=== PATIENT | female | born 1945 | race Caucasian/White ===

== ENCOUNTER → 2017-04-22 | Outpatient (CLI) | payer MEDICARE ==
[~2017-04-22] MED LIST: REGADENOSON 0.4 MG/5 ML DISP.SYRIN. IV ONE
--- NOTE | 2017-04-22 13:09 | CARD ---
APPROVED REPORT EXAM: Two-dimensional and M-mode echocardiogram with Doppler and color Doppler. Other Information Quality : Good INDICATION Hypertension/HCVD 2D DIMENSIONS Left Atrium(2D)2.9 (1.6-4.0cm)IVSd1.2 (0.7-1.1cm) Aortic Root(2D)2.6 (2.0-3.7cm)LVDd3.7 (3.9-5.9cm) LVOT Diameter1.9 (1.8-2.4cm)PWd1.2 (0.7-1.1cm) LVDs2.4 (2.5-4.0cm)FS (%) 34.7 % SV36.8 mlLVEF(%)64.7 (>50%) Aortic Valve AoV Peak Alphonso.146.7cm/sAoV VTI29.8cm AO Peak GR.8.6mmHgLVOT Peak Alphonso.129.9cm/s AO Mean GR.4mmHgAVA (VMAX)2.47cm2 LUTHER (VTI)2.50cm2 Mitral Valve MV E Roquqezz79.8cm/sMV DECEL HQHH129jx MV A Eucpxpzq912.2cm/sE/A Ratio0.9 Tricuspid Valve TR P. Zyysdslt916ad/sRAP GVUSIFUL1feDl TR Peak Gr.64brBzMXWE40ygRt LEFT VENTRICLE The left ventricle is normal size. There is mild concentric left ventricular hypertrophy. Left ventri tamela systolic function is normal. The Ejection Fraction is 55-60%. There is normal LV segmental wall m otion. RIGHT VENTRICLE The right ventricle is normal size. The right ventricular systolic function is normal. ATRIA The left atrium size is normal. The right atrium size is normal. The interatrial septum is intact wit h no evidence for an atrial septal defect or patent foramen ovale as noted on 2-D or Doppler imaging. AORTIC VALVE The aortic valve is mildly thickened but opens well. Doppler and Color Flow revealed no significant a ortic regurgitation. There is no significant aortic valvular stenosis. MITRAL VALVE The mitral valve is mildly calcified but opens well. Possible bending of anterior mitral valve leafle t. There is no mitral valve stenosis. Doppler and Color-flow revealed trace to mild mitral regurgitat ion. TRICUSPID VALVE The tricuspid valve is normal in structure and function. Doppler and Color Flow revealed trace tricus pid valve regurgitation. There is no pulmonary hypertension. The PA pressure was estimated at 29 mmHg . There is no tricuspid valve prolapse or vegetation. There is no tricuspid valve stenosis. PULMONIC VALVE The pulmonary valve is normal in structure and function. Doppler and Color Flow revealed no pulmonic valvular regurgitation. There is no pulmonic valvular stenosis. GREAT VESSELS The aortic root is normal in size. The ascending aorta is normal in size. The IVC is normal in size a nd collapses >50% with inspiration. PERICARDIAL EFFUSION There is no pleural effusion. There is no evidence of significant pericardial effusion. Critical Notification Critical Value: No <Conclusion> Left ventricle systolic function is normal. The Ejection Fraction is 55-60%. There is normal LV segmental wall motion. Trace to mild mitral regurgitation. Trace tricuspid valve regurgitation. The PA pressure was estimated at 29 mmHg. There is no evidence of significant pericardial effusion.
--- NOTE | 2017-04-22 13:45 | RAD ---
APPROVED REPORT Test Type: Pharmacological Stress Nurse/Tech: Nakia Scott R.N. Test Indications: chest discomfort with high b/p Cardiac History: htn Medications: Zocor Medical History: See Electronic Medical Record Resting ECG: SR Resting Heart Rate: 70 bpm Resting Blood Pressure: 140/56mmHg Pretest Chest Pain: No chest pain Nurse/Tech Notes S1S2, lungs CTA, c/o headache Consent: The procedure was explained to the patient in lay terms. Informed consent was witnessed. Edgar eout was entered into [employer]. History and Stress Test performed by BEATA Gomez Pharm. Details Pharmacologic stress testing was performed using 0.4mg per 5ml of regadenoson given intravenously ove r 7-10 seconds. Stress Symptoms SOB at first that did resolve and al little worsening of origianal h/a POST EXERCISE Reason for Termination: Infusion complete Max HR: 108 bpm Max Blood Pressure: 155/57mmHg Blood Pressure response to exercise: Normal blood pressure response during stress. Heart Rate response to exercise: wnl Chest Pain: No. Arrhythmia: No. ST Change: Yes. slight ST depression in leads II, AVF INTERPRETATION Stress EKG Conclusion: Baseline EKG showed sinus rhythm. No ischemic changes at peak stress. No arr hythmias. Imaging Protocol IMAGE PROTOCOL: Rest Tc-99m/stress Tc-99m 1 day Rest: Stress: Viability: Radiopharm.Tc99m [id number] Sestamibi Dose10.2mCi 33.3mCi Duration 15min. 10min. Img Date 04/22/2017 04/22/2017 Inj-Img [id number]. 60min. Rest Admin Site:IV - Right AntecubitalAdministrator:BEATA Gomez Stress Admin Site: IV - Right AntecubitalAdministrator: BEATA Gomez STRESS DATA End Diast. Vol.54.0mlAv. Heart Rate82.0bpm End Syst. Vol.3.0mlCO Index BSA0.0L/min Myocardial Mass99.0gEject. Pzgbiwra27.0% Stress Rates Pk. Fill Rate2.82EDV/secLVtime Pk. Fill 226.67msec Pk. Empty Rate6.17ESV/secLVtime Pk. Wqshx129.00msec 1/3 Pk. Fill0.57EDV/sec Stress Scores Regional WT0.00Summed WT0.00 Regional WM0.00Summed WM0.00 Study quality was good. Left Ventricular size was Normal at Rest and Stress. Lung uptake was Normal. Left Ventricular ejection fraction is >80%. The rest and stress images show normal perfusion, normal contraction and thickening. LV Perf. Quant 17 Seg. SSS0.00 17 Seg. SRS0.00 17 Seg. SDS0.00 Stress Defect Extent (% LAD)0.00Rest Defect Extent (% LAD)0.00Rev. Defect Extent (% LAD)0.00 Stress Defect Extent (% LCX) 0.00Rest Defect Extent (% LCX)0.00Rev. Defect Extent (% LCX)0.00 Stress Defect Extent (% RCA)0.00Rest Defect Extent (% RCA)0.00Rev. Defect Extent (% RCA)0.00 Stress Defect Extent (% ANDERSON)0.00Rest Defect Extent (% ANDERSON)0.00Rev. Defect Extent (% ANDERSON)0.00 Conclusion 1. Regadenoson cardioisotope stress test did not show any evidence of ischemia or infarct. 2. Normal left ventricular systolic function with ejection fraction calculated at >80%. 3. Low risk for cardiac events.
== END | disposition home or self-care (01) ==
LOC: NM 09:16
PROVIDERS: ATTEND Internal Medicine Cardiovascular Disease
DX: I11.9 Hypertensive heart disease without heart failure (principal); I49.5 Sick sinus syndrome; I34.0 Nonrheumatic mitral (valve) insufficiency
CPT/HCPCS: 78452; 93017; 93306; 96374; 96375; 96376; A9500; J2785

== ENCOUNTER → 2017-12-09 | Outpatient (CLI) | payer MEDICARE | END | disposition home or self-care (01) | LOC: US 13:53 | DX: I11.9 Hypertensive heart disease without heart failure (principal); I70.0 Atherosclerosis of aorta | CPT/HCPCS: 93975 ==